=== PATIENT | male | born 1970 | race Caucasian/White ===

== ENCOUNTER 2022-04-21 13:07 | Inpatient (IN) | payer BC ==
[~2022-04-21] VITALS: Ht 180.3 cm; Wt 80.7 kg
[2022-04-21 13:38] LABS: HEMOGLOBIN 15.2 gm/dl (14.0-17.5); RED BLOOD COUNT 4.69 M/UL (4.20-5.50); WHITE BLOOD COUNT 10.2 K/UL (4.5-11.0)
[2022-04-21 14:00] LABS: BUN/CREATININE RATIO 8 (0-10)
[2022-04-21 19:20] LABS: BUN/CREATININE RATIO 7 (0-10)
[2022-04-22 00:57] LABS: RED BLOOD COUNT 4.24 M/UL (4.20-5.50); WHITE BLOOD COUNT 11.5 K/UL (4.5-11.0)
[2022-04-22 01:28] LABS: BUN/CREATININE RATIO 11 (0-10)
[2022-04-23 01:18] LABS: HEMOGLOBIN 13.3 gm/dl (14.0-17.5); RED BLOOD COUNT 4.08 M/UL (4.20-5.50); WHITE BLOOD COUNT 10.8 K/UL (4.5-11.0)
[2022-04-23 01:36] LABS: BUN/CREATININE RATIO 14 (0-10)
[2022-04-23] MEDS ORDERED: ACETAMINOPHEN325 MG PO (10:29)
[2022-04-23] MEDS ORDERED: HEPARIN SO5000 UNIT2 IVP (10:29)
[2022-04-23] MEDS ORDERED: ASPIRIN EC81 MG PO (10:29)
[2022-04-23] MEDS ORDERED: ATORVASTATIN CA20 MG PO (10:29)
[2022-04-23] MEDS ORDERED: MORPHINE SULFATE IVP (10:29)
[2022-04-23] MEDS ORDERED: NICOTINE PATCH1 EAC1 TOP (10:29)
[2022-04-23] MEDS ORDERED: LOPRESSOR 25 MG25 MG PO (10:29)
[2022-04-23] MEDS ORDERED: NITROGLYCE20 MG/1 GM TD (10:29)
== END 2022-04-23 15:30 | disposition short-term general hospital (02) | DRG 282 ==
LOC: ER1 13:07 → MED SURG 4 15:59 → CDU 15:59 → MED SURG 4 22:16
PROVIDERS: Emergency Medicine; Internal Medicine; Physician Assistant Medical; ADMIT Internal Medicine
PROC: 4A023N7 Measurement of Cardiac Sampling and Pressure, Left Heart, Percutaneous Approach (ICD-10-PCS; principal; 2022-04-22)
PROC: B2111ZZ Fluoroscopy of Multiple Coronary Arteries using Low Osmolar Contrast (ICD-10-PCS; 2022-04-22)
PROC: B24BZZZ Ultrasonography of Heart with Aorta (ICD-10-PCS; 2022-04-22)
DX: I21.4 Non-ST elevation (NSTEMI) myocardial infarction (principal); I25.10 Atherosclerotic heart disease of native coronary artery without angina pectoris; E78.5 Hyperlipidemia, unspecified; R73.03 Prediabetes; I10 Essential (primary) hypertension; R51.9 Headache, unspecified; I08.1 Rheumatic disorders of both mitral and tricuspid valves; F17.210 Nicotine dependence, cigarettes, uncomplicated; Z79.01 Long term (current) use of anticoagulants; Z79.82 Long term (current) use of aspirin; Z82.49 Family history of ischemic heart disease and other diseases of the circulatory system; Z87.01 Personal history of pneumonia (recurrent); Z86.16 Personal history of COVID-19; Z71.6 Tobacco abuse counseling
CPT/HCPCS: ECHO; 36415; 70450; 71045; 80048; 80053; 80061; 81001; 82550; 82553; 83036; 83735; 84439; 84443; 84484; 85025; 85027; 85730; 93005; 93306; 93880; 96374; 99152; 99285; C1769; C1887; C1894; J1644; J2250; J3010; J7040; Q9967